=== PATIENT | female | born 1960 | race Caucasian/White ===

== ENCOUNTER 2017-01-07 18:24 | Emergency (ER) | payer OTHER ==
[~2017-01-07] VITALS: Ht 170.2 cm; Wt 80.0 kg
[~2017-01-07 18:24] MED LIST: ALLERGY RELF PO; AMLODIPINE5 MG PO; ASPIRIN ADULT L81 M2; CALCI23 PO; CARVEDILOL12.5 MG PO; CIPROFLOXACIN500 M1 PO; COZAAR25 MG PO; CRANBERRY1 TA1 PO; DEPO-MEDROL40 MG/ML IJ; DULOXETINE HCL30 MG PO; FISH OIL1 CAP; FLEXERIL PO; FUROSEMIDE20 MG PO; GABAPENTIN400 M2 PO; GABAPENTIN400 MG PO; GABAPENTIN600 MG PO; HARD NAILS; HUMALOG PEN100 MG/M1 SC; HUMALOG100 MG/ML SC; INVOKANA300 MG PO; LEVEMIR FL100 UNIT/M SC; Levaquin PO; NOVOLIN R IJ; ONE TOUC7 XX; ONE TOUCH ULTRA 100 XX; PANTOPRAZOLE SO40 MG PO; PERCOCET 5/325M1 TAB PO; POTASSIUM99 MG PO; PRAVASTATIN40 MG PO; PROTONIX40 M2 PO; SERTRALINE25 MG PO; VANCOMYCIN750 MG IV; VITAMI16 PO; VITAMIN D2 PO; [UNRECOGNIZED DRUG - OTHER] PO; [UNRECOGNIZED DRUG - SUPPLY] SC
[2017-01-07 19:52] LABS: HEMOGLOBIN 8.2 g/dl (12.0-16.0); IMMATURE GRANULOCYTES 0.3 % (0.0-1.0); MEAN CELL VOLUME 86.6 fL CALC (80.0-100.0); MEAN CORPUSCULAR HGB 29.6 pG CALC (26.0-32.0); MEAN CORPUSCULAR HGB CONC 34.2 g/L CALC (32.0-36.0); NEUT# 4.45 thou/uL (2.00-7.15); RED BLOOD COUNT 2.77 mill/uL (4.20-5.60); RED CELL DISTRI WIDTH 12.5 % (11.5-15.5)
[2017-01-07 20:05] LABS: ALBUMIN 2.7 g/dL (3.2-5.0); BILIRUBIN, TOTAL 0.3 mg/dL (0.0-1.4); CALCIUM 8.6 mg/dL (8.4-10.2); CREATININE 3.9 mg/dL (0.5-1.0); POTASSIUM 3.9 mmol/l (3.5-5.1); TOTAL PROTEIN 5.7 g/dL (6.3-8.2)
[2017-01-07 20:24] LABS: URINE BILIRUBIN - DIPSTICK NEGATIVE (NEGATIVE); URINE BLOOD DIPSTICK NEGATIVE (NEGATIVE); URINE CLARITY CLEAR; URINE COLOR YELLOW; URINE GLUCOSE - DIPSTICK 250 mg/dL (NEGATIVE); URINE KETONE NEGATIVE (NEGATIVE); URINE LEUK ESTERASE NEGATIVE (NEGATIVE); URINE NITRITE - DIPSTICK NEGATIVE (Negative); URINE PH 5.5 (4.5-8.0); URINE PROTEIN - DIPSTICK 100 mg/dL (NEG-TRACE); URINE SPECIFIC GRAVITY 1.015; URINE UROBILINOGEN - DIPSTICK 0.2 E.U./dL (0.2)
[2017-01-07 20:50] LABS: URINE SQUAMOUS EPITHELIAL CELL FEW EPI/hpf (0-FEW)
[2017-01-07 22:25] VITALS: BP 138/69
== END 2017-01-07 22:25 | disposition short-term general hospital (02) | DRG 700 ==
LOC: ED 18:24
PROVIDERS: Emergency Medicine
DX: E11.22 Type 2 diabetes mellitus with diabetic chronic kidney disease (principal); K31.84 Gastroparesis; E11.43 Type 2 diabetes mellitus with diabetic autonomic (poly)neuropathy; N18.9 Chronic kidney disease, unspecified; R11.10 Vomiting, unspecified; R74.8 Abnormal levels of other serum enzymes; E11.21 Type 2 diabetes mellitus with diabetic nephropathy; M19.90 Unspecified osteoarthritis, unspecified site; E11.319 Type 2 diabetes mellitus with unspecified diabetic retinopathy without macular edema; I10 Essential (primary) hypertension; E78.00 Pure hypercholesterolemia, unspecified; Z86.73 Personal history of transient ischemic attack (TIA), and cerebral infarction without residual deficits; Z79.4 Long term (current) use of insulin
CPT/HCPCS: S0164

== ENCOUNTER 2017-11-08 07:52 | Day surgery (SDC) | payer BC ==
[~2017-11-08] VITALS: Ht 165.1 cm; Wt 77.1 kg
[2017-11-08] MEDS ORDERED: REGLAN10 MG PO (08:29)
[2017-11-08] MEDS ORDERED: ZENPEP PO (08:29)
[2017-11-08] MEDS ORDERED: RENAGEL 800MG800 MG PO (08:30)
[2017-11-08] MEDS ORDERED: AMLODIPINE2.5 MG PO (09:22)
[2017-11-08 13:21] VITALS: BP 176/75
== END 2017-11-08 12:20 | disposition home or self-care (01) | DRG 939 ==
LOC: ENDO 07:52
PROVIDERS: ATTEND Surgery
PROC: 0DJD8ZZ Inspection of Lower Intestinal Tract, Via Natural or Artificial Opening Endoscopic (ICD-10-PCS; principal; 2017-11-08)
PROC: 05PY03Z Removal of Infusion Device from Upper Vein, Open Approach (ICD-10-PCS; 2017-11-08)
PROC: 0FPD8DZ Removal of Intraluminal Device from Pancreatic Duct, Via Natural or Artificial Opening Endoscopic (ICD-10-PCS; 2017-11-08)
DX: Z12.11 Encounter for screening for malignant neoplasm of colon (principal); E11.22 Type 2 diabetes mellitus with diabetic chronic kidney disease; N18.6 End stage renal disease; E11.43 Type 2 diabetes mellitus with diabetic autonomic (poly)neuropathy; K31.84 Gastroparesis; Q43.9 Congenital malformation of intestine, unspecified; I25.10 Atherosclerotic heart disease of native coronary artery without angina pectoris; Z99.2 Dependence on renal dialysis; Z86.73 Personal history of transient ischemic attack (TIA), and cerebral infarction without residual deficits; Z96.89 Presence of other specified functional implants

== ENCOUNTER 2018-01-01 13:47 | Emergency (ER) | payer BC ==
[~2018-01-01] VITALS: Ht 165.1 cm; Wt 84.0 kg
[~2018-01-01 13:47] MED LIST changes: +AMLODIPINE2.5 MG PO; +REGLAN10 MG PO; +RENAGEL 800MG800 MG PO; +ZENPEP PO
[2018-01-01 20:19] VITALS: BP 148/73
== END 2018-01-01 20:15 | DRG 533 ==
LOC: ED 13:47
PROC: 0T9B70Z Drainage of Bladder with Drainage Device, Via Natural or Artificial Opening (ICD-10-PCS; principal; 2018-01-01)
DX: S72.91XA Unspecified fracture of right femur, initial encounter for closed fracture (principal); N18.6 End stage renal disease; E11.22 Type 2 diabetes mellitus with diabetic chronic kidney disease; I12.0 Hypertensive chronic kidney disease with stage 5 chronic kidney disease or end stage renal disease; W18.30XA Fall on same level, unspecified, initial encounter; Y92.89 Other specified places as the place of occurrence of the external cause; Z86.73 Personal history of transient ischemic attack (TIA), and cerebral infarction without residual deficits; Z99.2 Dependence on renal dialysis

== ENCOUNTER → 2018-11-19 | Day surgery (SDC) | payer MEDICARE ==
[~2018-11-19] MED LIST changes: +ADULT ASPIRIN E81 MG PO; +EPOGEN3000 UNIT/ IV; +FISH OIL1000 MG PO; +HUMALOG100 UNIT/M SC; +LIQUACEL PO; +LOSARTAN POT50 MG PO; +RENVELA800 MG PO; +VITAMIN D35000 UNIT PO; +XANAX0.5 MG PO; +[UNRECOGNIZED DRUG - OTHER] PO
[2018-11-19 12:47] LABS: POTASSIUM 6.5 mmol/l (3.5-5.1)
[2018-11-19 13:37] VITALS: BP 133/58
== END | disposition home or self-care (01) ==
LOC: ORM 09:58
PROVIDERS: ATTEND Surgery
PROC: 02HV33Z Insertion of Infusion Device into Superior Vena Cava, Percutaneous Approach (ICD-10-PCS; principal; 2018-11-19)
PROC: B518ZZA Fluoroscopy of Superior Vena Cava, Guidance (ICD-10-PCS; 2018-11-19)
DX: T82.590A Other mechanical complication of surgically created arteriovenous fistula, initial encounter (principal); E11.22 Type 2 diabetes mellitus with diabetic chronic kidney disease; I12.0 Hypertensive chronic kidney disease with stage 5 chronic kidney disease or end stage renal disease; N18.6 End stage renal disease; Y83.2 Surgical operation with anastomosis, bypass or graft as the cause of abnormal reaction of the patient, or of later complication, without mention of misadventure at the time of the procedure; Z99.2 Dependence on renal dialysis
CPT/HCPCS: C1769; J0131

== ENCOUNTER 2019-01-09 10:21 | Emergency (ER) | payer MEDICARE ==
[~2019-01-09] VITALS: Ht 167.6 cm; Wt 85.0 kg
[2019-01-09] MEDS ORDERED: ONDANSETRON4 MG PO ×2 (11:19→11:34)
[2019-01-09 11:28] VITALS: BP 189/80
== END 2019-01-09 11:37 | disposition home or self-care (01) ==
LOC: ED 10:21
DX: Z99.2 Dependence on renal dialysis (principal); E11.43 Type 2 diabetes mellitus with diabetic autonomic (poly)neuropathy; K31.84 Gastroparesis; E11.22 Type 2 diabetes mellitus with diabetic chronic kidney disease; N18.6 End stage renal disease; R11.2 Nausea with vomiting, unspecified; Z79.4 Long term (current) use of insulin